=== PATIENT | female | born 1965 | race Caucasian/White ===

== ENCOUNTER 2022-02-27 10:51 | Outpatient (CLI) | payer BC | END 2022-02-27 10:52 | disposition home or self-care (01) | LOC: CSHRAD 10:51 | PROVIDERS: ATTEND Nurse Practitioner Adult Health | DX: M79.641 Pain in right hand (principal); W18.30XA Fall on same level, unspecified, initial encounter; M79.89 Other specified soft tissue disorders ==

== ENCOUNTER 2023-07-08 12:27 | Outpatient (CLI) | payer BC | END 2023-07-08 12:28 | disposition home or self-care (01) | LOC: CSHMAMMO 12:27 | PROVIDERS: ATTEND Internal Medicine | DX: Z12.31 Encounter for screening mammogram for malignant neoplasm of breast (principal) | CPT/HCPCS: 77063; 77067 ==

== ENCOUNTER 2024-08-25 09:43 | Outpatient (CLI) | payer BC | END 2024-08-25 09:44 | disposition home or self-care (01) | LOC: CSHMAMMO 09:43 | PROVIDERS: ATTEND Internal Medicine | DX: Z12.31 Encounter for screening mammogram for malignant neoplasm of breast (principal) | CPT/HCPCS: 77063; 77067 ==